=== PATIENT | female | born 1980 | race Caucasian/White ===

== ENCOUNTER 2017-12-28 08:52 | Emergency (ER) | payer OTHER ==
[2017-12-28 08:57] VITALS: BMI 37.5
--- NOTE | 2017-12-28 09:43 | PDOC ---
History of Present Illness - General Chief Complaint: Vaginal Bleeding Stated Complaint: 6WK,BLEEDING History Source: Patient Exam Limitations: No Limitations - History of Present Illness Travel History: No Initial Comments: 12/28/17 09:43 HPI: This 37-year-old female who states that she is with a last menstrual period of November 15 is claiming that she's having some vaginal bleeding since this morning. No recent sexual intercourse. Also had a bout of nausea and vomiting last night 1. She is not having any nausea, vomiting, excessive vaginal bleeding, abdominal pain at this time. Denies fever Chief Compliant: vag bleeding in light of PMH: none FH: Pt has not recently traveled outside the country in the last 30 days. Pt has not been in contact with people who have traveled out of the country, in contact with people who have been ill with fever, n, v, d. 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 MANAGER:[address] LMP: Nov 15 G 5 P 1 a 0 M2 1 ectopic in 2016 in left ovary Past History - Travel Traveled outside of the country in the last 30 days: No Close contact w/someone who was outside of country & ill: No - Past Medical History Allergies/Adverse Reactions: Allergies Allergy/AdvReac Type Severity Reaction Status Date / Time No Known Allergies Allergy Verified 12/28/17 08:56 Home Medications: Ambulatory Orders NK [No Known Home Medication] 12/28/17 Anemia: No Cardiac Disorders: No COPD: No - Surgical History Abdominal Surgery: (etopic ) - Reproductive History Is Patient Now?: Yes (6 weeks) (#): 5 Para: 1 Ectopic : Yes (x1) Spontaneous : 2 - Suicide/Smoking/Psychosocial Hx Smoking History: Never smoked Information on smoking cessation initiated: No Hx Alcohol Use: No Drug/Substance Use Hx: No Substance Use Type: None Abd/GI Specific PMHX - Complaint Specific PMHX Colitis: No Diverticulitis: No Gall Bladder Disease: No GERD: No Hepatitis: No Irritable Bowel Synd (IBS): No Pancreatitis: No GI Ulcer Disease: No Review of Systems - Review of Systems Able to Perform ROS?: Yes Is the patient limited Romanian proficient: No Constitutional: No: Symptoms Reported HEENTM: No: Symptoms Reported Respiratory: No: Symptoms reported Cardiac (ROS): No: Symptoms Reported ABD/GI: Yes: Nausea, Vomiting, Other (vaginal bleeding). No: Abdominal Distended, Constipated, Diarrhea, Abdominal cramping : No: Symptoms Reported Musculoskeletal: No: Symptoms Reported Integumentary: No: Symptoms Reported Neurological: No: Symptoms reported *Physical Exam - Vital Signs Last Vital Signs Temp Pulse Resp BP Pulse Ox 98.3 F 96 H 17 128/65 98 12/28/17 08:54 12/28/17 08:54 12/28/17 08:54 12/28/17 08:54 12/28/17 08:54 - Physical Exam General Appearance: Yes: Appropriately Dressed HEENT: positive: Normal Voice Respiratory/Chest: positive: Lungs Clear Cardiovascular: positive: Regular Rate Female Pelvic Exam: positive: normal external exam, vaginal bleeding Gastrointestinal/Abdominal: positive: Normal Bowel Sounds, Flat, Soft Extremity: positive: Normal Capillary Refill Integumentary: positive: Dry, Warm Neurologic: positive: Fully Oriented, Alert ED Treatment Course - LABORATORY CBC & Chemistry Diagram: 12/28/17 09:50 Medical Decision Making - Medical Decision Making 12/28/17 09:50 This pt was seen and examined at bedside with family present Pt with c/o vaginal bleeding in bleeding Plan -Beta HCG -T&S -Transvaginal u/s -cbc 12/28/17 11:27 Laboratory Tests 12/28/17 12/28/17 12/28/17 09:50 09:50 09:50 WBC 10.5 H Hgb 13.4 Hct 39.0 Plt Count 268 Beta HCG, Quant 82608.9 Blood Type A NEGATIVE Antibody Screen Negative 12/28/17 12:08 us officially read with a single live fetus with HR 150 without obvious distress. Will discharge home and have them return in 3 days or her Primary DENTAL LABORATORY MANAGER for evaluation. If bleeding continues, will need to come in sooner. *DC/Admit/Observation/Transfer Diagnosis at time of Disposition: Vaginal bleeding affecting early - Discharge Dispostion Disposition: HOME Condition at time of disposition: Stable Admit: No - Referrals - Patient Instructions Printed Discharge Instructions: Vaginal Bleeding During Additional Instructions: Discharge instructions 1. Please follow up with your primary physician DENTAL LABORATORY MANAGER within the next few days and explain that you have been seen here in the Emergency Room for vaginal bleeding. 2. If you experience any worsening of symptoms, such as heavy bleeding and clotting with increase pain, please return to the ER 3. Rest, avoid sexual intercourse until follow up with your DENTAL LABORATORY MANAGER 4. Drink plenty of water, rest with your feet up - Post Discharge Activity Forms/Work/School Notes: Back to Work
[2017-12-28 09:54] LABS: HEMOGLOBIN 13.4 GM/dL (10.7-15.3); MCH 30.3 pg (25.7-33.7); MCHC 34.4 g/dl (32.0-36.0); MEAN CELL VOLUME 88.1 fl (80-96); MEAN PLT VOLUME 6.9 fl (7.5-11.1); PLATELET COUNT 268 K/MM3 (134-434); RBC 4.43 M/mm3 (3.60-5.2); RDW 13.7 % (11.6-15.6); WHITE BLOOD COUNT 10.5 K/mm3 (4.0-10.0)
[2017-12-28 09:57] LABS: URINE APPEARANCE CLEAR; URINE BILIRUBIN NEGATIVE (NEGATIVE); URINE BLOOD NEGATIVE (NEGATIVE); URINE COLOR LTYELLOW; URINE GLUCOSE (UA) NEGATIVE (NEGATIVE); URINE KETONE NEGATIVE (NEGATIVE); URINE LEUK ESTERASE NEGATIVE (NEGATIVE); URINE NITRITE NEGATIVE (NEGATIVE); URINE PROTEIN NEGATIVE (NEGATIVE); URINE UROBILINOGEN NEGATIVE mg/dL (0.2-1.0)
[2017-12-28 12:16] VITALS: BP 125/80; PULSE 80; TEMP 98.2
== END 2017-12-28 12:30 | disposition home or self-care (01) ==
LOC: JER 08:52
DX: O26.891 Other specified pregnancy related conditions, first trimester (principal); Z3A.01 Less than 8 weeks gestation of pregnancy; N93.9 Abnormal uterine and vaginal bleeding, unspecified
CPT/HCPCS: 36415; 76817-TC; 81003; 84702; 85027; 86850; 86900; 86901; 99282-25

== ENCOUNTER 2018-01-10 10:17 | Emergency (ER) | payer OTHER ==
[2018-01-10 10:27] VITALS: TEMP 98; BMI 36.8
[2018-01-10] MEDS ORDERED: RHO(D) IMMUNE GLOBULIN 1,500 UNIT DISP.SYRIN IM ONE (11:30)
--- NOTE | 2018-01-10 11:49 | PDOC ---
History of Present Illness - General Chief Complaint: Vaginal Bleeding Stated Complaint: VAGINAL BLEEDING (8 WKS ) Time Seen by Provider: 01/10/18 11:05 History Source: Patient Exam Limitations: No Limitations - History of Present Illness Travel History: No Initial Comments: 01/10/18 11:44 37-year-old female currently 8 weeks presents to the emergency room with evaluation for vaginal bleeding since this morning after having repetitions sneezing. Patient states has no abdominal pain or passage of large clots and is concerned she had vaginal spotting earlier this month at around 6 weeks of . Patient states is followed by Carito Magdaleno at [address] [place] [address] and has had no ultrasound for this . Patient has no urinary complaints, back pain, fever, chills, or vaginal discharge. Timing/Duration: reports: changing over time, intermittent Aggravating Factors: improves with: None Alleviating Factors: improves with: None Past History - Travel Traveled outside of the country in the last 30 days: No - Past Medical History Allergies/Adverse Reactions: Allergies Allergy/AdvReac Type Severity Reaction Status Date / Time No Known Allergies Allergy Verified 01/10/18 10:26 Home Medications: Ambulatory Orders NK [No Known Home Medication] 12/28/17 Anemia: No Cardiac Disorders: No COPD: No - Surgical History Abdominal Surgery: (etopic ) - Reproductive History (#): 5 Para: 1 Ectopic : Yes (x1) Spontaneous : 2 - Suicide/Smoking/Psychosocial Hx Smoking History: Never smoked Information on smoking cessation initiated: No Hx Alcohol Use: No Drug/Substance Use Hx: No Substance Use Type: None Patient Lives Alone: No Lives with/in: spouse/SO Abd/GI Specific PMHX - Complaint Specific PMHX Colitis: No Diverticulitis: No Gall Bladder Disease: No GERD: No Hepatitis: No Irritable Bowel Synd (IBS): No Pancreatitis: No GI Ulcer Disease: No Review of Systems - Review of Systems Able to Perform ROS?: Yes Constitutional: No: Symptoms Reported ABD/GI: No: Symptoms Reported : Yes: Discharge Musculoskeletal: No: Symptoms Reported Integumentary: No: Symptoms Reported Neurological: No: Symptoms reported Hematologic/Lymphatic: No: Symptoms Reported *Physical Exam - Vital Signs Last Vital Signs Temp Pulse Resp BP Pulse Ox 98 F 82 18 122/68 99 01/10/18 10:25 01/10/18 10:25 01/10/18 10:25 01/10/18 10:25 01/10/18 10:25 - Physical Exam General Appearance: Yes: Nourished, Appropriately Dressed. No: Apparent Distress Neck: positive: Normal Thyroid Cardiovascular: positive: Regular Rhythm, Regular Rate. negative: Murmur Female Pelvic Exam: positive: normal external exam, cervical os closed, normal adnexa, vaginal bleeding (scant brown). negative: CMT, adnexal tenderness Gastrointestinal/Abdominal: positive: Normal Bowel Sounds, Soft, Tenderness ( mild left suprapubic). negative: Distended, Guarding, Rebound Musculoskeletal: negative: CVA Tenderness Integumentary: positive: Normal Color, Warm, Moist Neurologic: positive: Motor Strength 5/5 (ambulatory) ED Treatment Course - LABORATORY CBC & Chemistry Diagram: 01/10/18 12:53 - RADIOLOGY Radiology Studies Ordered: Category Date Time Status <14WKS US [US] Stat Ultrasound 01/10/18 11:32 Ordered Medical Decision Making - Medical Decision Making 01/10/18 11:47 Patient here of vaginal bleeding since this morning which has subsided since arrival. Patient on exam with scant brown discharge with mild left suprapubic tenderness. Differential diagnosis: Vaginal bleeding in , miscarriage, UTI, Type and screen ordered since she is A- according to previous ER visit. CBC, urinalysis urine culture beta hCG and ultrasound ordered 01/10/18 14:02 Laboratory Tests 01/10/18 01/10/18 01/10/18 12:10 12:53 12:53 WBC 13.7 H D Hgb 13.5 Hct 40.3 Plt Count 312 MPV 6.8 L Beta HCG, Quant Urine Ketones Negative Ur Leukocyte Esterase Negative Blood Type A NEGATIVE 01/10/18 12:53 WBC Hgb Hct Plt Count MPV Beta HCG, Quant 44525.8 Urine Ketones Ur Leukocyte Esterase Blood Type Patient went to ultrasound and is awaiting rhogam administration 01/10/18 14:36 Ultrasound shows a single live intrauterine gestation corresponding to an estimated mated gestational age of 7 weeks and 6 days. heart rate at 1 52 bpm. Patient has hypoechoic mass in the anterior wall of the uterus most compatible with Leiomyomas patient will be discharged home with recommendations to follow-up with her DOCTOR OF AUDIOLOGY. *DC/Admit/Observation/Transfer Diagnosis at time of Disposition: Vaginal bleeding affecting early , Threatened in early - Discharge Dispostion Disposition: HOME Condition at time of disposition: Good - Referrals Referrals: Karina Velazquez MD [Primary Care Provider] - - Patient Instructions Printed Discharge Instructions: DI for Vaginal Bleeding During Additional Instructions: Ultrasound shows you are 7 weeks 6 days and year heart rate was 1 52 bpm. You also had fibroids noted within the uterus which may attribute to vaginal bleeding - Post Discharge Activity Forms/Work/School Notes: Back to Work
[2018-01-10 12:28] LABS: URINE APPEARANCE CLEAR; URINE BILIRUBIN NEGATIVE (NEGATIVE); URINE BLOOD NEGATIVE (NEGATIVE); URINE COLOR YELLOW; URINE GLUCOSE (UA) NEGATIVE (NEGATIVE); URINE KETONE NEGATIVE (NEGATIVE); URINE LEUK ESTERASE NEGATIVE (NEGATIVE); URINE NITRITE NEGATIVE (NEGATIVE); URINE PROTEIN NEGATIVE (NEGATIVE); URINE UROBILINOGEN NEGATIVE mg/dL (0.2-1.0)
[2018-01-10 12:59] LABS: BASO % 0.3 % (0-2.0); EOS % 0.9 % (0-4.5); HEMATOCRIT 40.3 % (32.4-45.2); HEMOGLOBIN 13.5 GM/dL (10.7-15.3); LYMPH % 14.3 % (8-40); MCH 29.6 pg (25.7-33.7); MCHC 33.4 g/dl (32.0-36.0); MEAN CELL VOLUME 88.6 fl (80-96); MEAN PLT VOLUME 6.8 fl (7.5-11.1); MONO % 4.9 % (3.8-10.2); NEUT % 79.6 % (42.8-82.8); PLATELET COUNT 312 K/MM3 (134-434); RBC 4.55 M/mm3 (3.60-5.2); RDW 13.4 % (11.6-15.6); WHITE BLOOD COUNT 13.7 K/mm3 (4.0-10.0)
--- NOTE | 2018-01-10 13:31 | PDOC ---
*Physical Exam - Vital Signs Last Vital Signs Temp Pulse Resp BP Pulse Ox 98 F 82 18 122/68 99 01/10/18 10:25 01/10/18 10:25 01/10/18 10:25 01/10/18 10:25 01/10/18 10:25 ED Treatment Course - LABORATORY CBC & Chemistry Diagram: 01/10/18 12:53 - ADDITIONAL ORDERS Additional order review: Laboratory Results 01/10/18 12:10 Urine Color Yellow Urine Appearance Clear Urine pH 6.0 Ur Specific [place] 1.024 Urine Protein Negative Urine Glucose (UA) Negative Urine Ketones Negative Urine Blood Negative Urine Nitrite Negative Urine Bilirubin Negative Urine Urobilinogen Negative Ur Leukocyte Esterase Negative 01/10/18 12:53 RBC 4.55 MCV 88.6 MCHC 33.4 RDW 13.4 MPV 6.8 L Neutrophils % 79.6 Lymphocytes % 14.3 Monocytes % 4.9 Eosinophils % 0.9 Basophils % 0.3 Medical Decision Making - Medical Decision Making 01/10/18 13:30 Patient seen and evaluated with the nurse practitioner. I agree with the overall evaluation, assessment, and management with the following summary of visit: 37-year-old female approximately 8 weeks gestation presents with vaginal bleeding. Threatened miscarriage versus ectopic. Labs, urinalysis Rh, hCG Dispo accordingly *DC/Admit/Observation/Transfer Diagnosis at time of Disposition: Vaginal bleeding affecting early - Referrals Referrals: Karina Velazquez MD [Primary Care Provider] - - Patient Instructions - Post Discharge Activity
[2018-01-10 15:49] VITALS: BP 125/70; PULSE 84
== END 2018-01-10 15:35 | disposition home or self-care (01) ==
LOC: JER 10:17
PROC: 3E0234Z Introduction of Serum, Toxoid and Vaccine into Muscle, Percutaneous Approach (ICD-10-PCS; principal; 2018-01-10)
DX: O26.891 Other specified pregnancy related conditions, first trimester (principal); O20.0 Threatened abortion; O36.0910 Maternal care for other rhesus isoimmunization, first trimester, not applicable or unspecified; Z3A.01 Less than 8 weeks gestation of pregnancy
CPT/HCPCS: 36415; 76801-TC; 81003; 84702; 85025; 86850; 86900; 86901; 86999; 87086; 99283-25; J1561

== ENCOUNTER 2018-02-04 20:01 | Emergency (ER) | payer OTHER ==
[2018-02-04 20:05] VITALS: BMI 36.6
--- NOTE | 2018-02-04 20:23 | PDOC ---
History of Present Illness - General Chief Complaint: Vaginal Bleeding Stated Complaint: VAGINAL BLEEDING (12 WKS ) Time Seen by Provider: 02/04/18 20:17 History Source: Patient Exam Limitations: No Limitations - History of Present Illness Travel History: No Initial Comments: 02/04/18 20:58 Best Contact: Pmhx: N/A Pshx:N/A Allergies: NKDA LMP: 11/14/2017 37 year old female presents to the emergency department with her complaining of 5/10 dull nonradiating intermittent pelvic pain with mild vaginal bleed but denies fever, chills, nausea/vomiting, chest pain, shortness of breath, back pains, abdominal pains, urinary symptoms: Frequency/urgency/ hesitancy, hematuria. On 01/10/2018 patient had a transvaginal ultrasound that showed a live single intrauterine Past History - Past Medical History Allergies/Adverse Reactions: Allergies Allergy/AdvReac Type Severity Reaction Status Date / Time shellfish derived Allergy Verified 02/04/18 20:05 Home Medications: Ambulatory Orders NK [No Known Home Medication] 12/28/17 Anemia: No Cardiac Disorders: No COPD: No - Surgical History Abdominal Surgery: (etopic ) - Reproductive History (#): 5 Para: 1 Ectopic : Yes (x1) Spontaneous : 2 - Suicide/Smoking/Psychosocial Hx Smoking History: Never smoked Have you smoked in the past 12 months: No Information on smoking cessation initiated: No Hx Alcohol Use: No Drug/Substance Use Hx: No Substance Use Type: None Abd/GI Specific PMHX - Complaint Specific PMHX Colitis: No Diverticulitis: No Gall Bladder Disease: No GERD: No Hepatitis: No Irritable Bowel Synd (IBS): No Pancreatitis: No GI Ulcer Disease: No *Physical Exam - Vital Signs Last Vital Signs Temp Pulse Resp BP Pulse Ox 98.0 F 88 16 134/79 99 02/04/18 20:03 02/04/18 20:03 02/04/18 20:03 02/04/18 20:03 02/04/18 20:03 ED Treatment Course - LABORATORY CBC & Chemistry Diagram: 02/04/18 20:29 02/04/18 20:29 - RADIOLOGY Radiograph Interpretation: 02/04/18 23:46 Transvaginal ultrasound: demise Progress Note - Progress Note Progress Note: 0027hrs: Spoke to Dr. Pierson/miller kiln dried salt in house, states patient had rolled a.m. on January 10 which should cover her visit and was diagnosed with demise today *DC/Admit/Observation/Transfer Diagnosis at time of Disposition: demise - Discharge Dispostion Disposition: HOME Condition at time of disposition: Stable Admit: No - Referrals Referrals: Karina Velazquez MD [Primary Care Provider] - Rosana Marrero MD [Staff Physician] - - Patient Instructions Additional Instructions: Be sure to follow-up with your miller kiln dried salt within 48 hours Return back to the emergency department for vaginal bleed, increased pain or concerning symptoms - Post Discharge Activity
[2018-02-04 20:51] LABS: BASO % 0.2 % (0-2.0); EOS % 1.9 % (0-4.5); HEMATOCRIT 37.1 % (32.4-45.2); LYMPH % 24.6 % (8-40); MCH 30.7 pg (25.7-33.7); MEAN CELL VOLUME 87.6 fl (80-96); MEAN PLT VOLUME 6.7 fl (7.5-11.1); MONO % 5.7 % (3.8-10.2); NEUT % 67.6 % (42.8-82.8); PLATELET COUNT 293 K/MM3 (134-434); RBC 4.23 M/mm3 (3.60-5.2); RDW 12.7 % (11.6-15.6); WHITE BLOOD COUNT 10.9 K/mm3 (4.0-10.0)
[2018-02-04 21:07] LABS: URINE APPEARANCE SLCLOUDY; URINE BILIRUBIN NEGATIVE (<2.0 mg/dL); URINE BLOOD 2+ (NEGATIVE); URINE COLOR LTYELLOW; URINE GLUCOSE (UA) NEGATIVE (NEGATIVE); URINE KETONE NEGATIVE (NEGATIVE); URINE LEUK ESTERASE NEGATIVE (NEGATIVE); URINE NITRITE NEGATIVE (NEGATIVE); URINE PROTEIN NEGATIVE (NEGATIVE); URINE UROBILINOGEN NEGATIVE mg/dL (0.2-1.0)
--- NOTE | 2018-02-04 21:07 | PDOC ---
*Physical Exam - Vital Signs Last Vital Signs Temp Pulse Resp BP Pulse Ox 98.0 F 88 16 134/79 99 02/04/18 20:03 02/04/18 20:03 02/04/18 20:03 02/04/18 20:03 02/04/18 20:03 ED Treatment Course - LABORATORY CBC & Chemistry Diagram: 02/04/18 20:29 02/04/18 20:29 - ADDITIONAL ORDERS Additional order review: 02/04/18 20:29 RBC 4.23 MCV 87.6 MCHC 35.0 RDW 12.7 MPV 6.7 L Neutrophils % 67.6 Lymphocytes % 24.6 D Monocytes % 5.7 Eosinophils % 1.9 D Basophils % 0.2 Medical Decision Making - Medical Decision Making 02/04/18 21:07 Pt seen by Midlevel Provider under my direct supervision Pt interviewed and examined Ancillary studies reviewed I agree with plan as outlined by Midlevel Provider *DC/Admit/Observation/Transfer Diagnosis at time of Disposition: demise - Discharge Dispostion Disposition: HOME Condition at time of disposition: Stable - Referrals Referrals: Kraina Velazquez MD [Primary Care Provider] - Rosana Marrero MD [Staff Physician] - - Patient Instructions Additional Instructions: Be sure to follow-up with your acid patroller within 48 hours Return back to the emergency department for vaginal bleed, increased pain or concerning symptoms - Post Discharge Activity
[2018-02-04 21:10] LABS: EPI CELLS RARE /HPF (FEW); URINE BACTERIA RARE /hpf (NONE SEEN); URINE MUCUS RARE
[2018-02-04 21:13] LABS: ALBUMIN 3.1 g/dl (3.4-5.0); ANION GAP 4 (8-16); BLOOD UREA NITROGEN 15 mg/dL (7-18); CALCIUM 8.5 mg/dL (8.5-10.1); CHLORIDE 107 mmol/L (98-107); CO2 26 mmol/L (21-32); CREATININE 1.1 mg/dL (0.55-1.02); GLUCOSE,RANDOM 104 mg/dL (74-106); POTASSIUM 3.9 mmol/L (3.5-5.1); SGOT/AST 10 U/L (15-37); SGPT/ALT 22 U/L (12-78); SODIUM 137 mmol/L (136-145)
[2018-02-04 21:14] LABS: ALK PHOS 60 U/L (45-117); TOT PROT 6.8 g/dl (6.4-8.2)
[2018-02-04 21:17] LABS: BILIRUBIN,TOTAL < 0.1 mg/dL (0.2-1.0)
[2018-02-04 23:04] VITALS: BP 128/75; PULSE 82; TEMP 98.1
== END 2018-02-05 00:48 | disposition home or self-care (01) ==
LOC: JER 20:01
PROC: 3E033NZ Introduction of Analgesics, Hypnotics, Sedatives into Peripheral Vein, Percutaneous Approach (ICD-10-PCS; principal; 2018-02-04)
PROC: 3E0234Z Introduction of Serum, Toxoid and Vaccine into Muscle, Percutaneous Approach (ICD-10-PCS; 2018-02-04)
DX: O02.1 Missed abortion (principal); Z3A.09 9 weeks gestation of pregnancy
CPT/HCPCS: 36415; 76817-TC; 80053; 81003; 81015; 84702; 85025; 86850; 86870; 86900; 86901; 86902; 86999; 96372; 96374; 99282-25

== ENCOUNTER 2018-02-05 12:23 | Emergency (ER) | payer OTHER ==
[2018-02-05 12:36] VITALS: TEMP 97.8; BMI 36.8
--- NOTE | 2018-02-05 12:47 | PDOC ---
History of Present Illness - History of Present Illness Initial Comments: 02/05/18 12:58 Patient is a 37F, with PMHx of fibroids, 2 miscarriages and 1 ectopic, who presents to the ED complaining of abdominal pain and vaginal bleeding s/p demise earlier today. Patient reports 3 weeks of vaginal bleeding and reports that she has been bleeding intermittently throughout her . She is now bleeding heavily and has gone through 4 pads since this morning. She reports passing tissue and brought it with her. She saw her primary on Tuesday and reports that her bleeding and abdominal cramping worsened on Tuesday. She was given Rhogam on 01/10. She denies, lightheadedness, dizziness, chest pain, or shortness of breath. <Garima Bond - Last Filed: 02/05/18 13:53> <Chapis Navarrete - Last Filed: 02/05/18 16:13> - General Chief Complaint: Vaginal Bleeding Stated Complaint: ABD PAIN/VAG BLEEDING Time Seen by Provider: 02/05/18 12:32 Past History <Garima Bond - Last Filed: 02/05/18 13:53> - Past Medical History Anemia: No Cardiac Disorders: No COPD: No - Surgical History Abdominal Surgery: (etopic ) - Reproductive History (#): 5 Para: 1 Ectopic : Yes (x1) Spontaneous : 2 - Suicide/Smoking/Psychosocial Hx Smoking History: Never smoked Have you smoked in the past 12 months: No Information on smoking cessation initiated: No Hx Alcohol Use: No Drug/Substance Use Hx: No Substance Use Type: None <Chapis Navarrete - Last Filed: 02/05/18 16:13> - Past Medical History Allergies/Adverse Reactions: Allergies Allergy/AdvReac Type Severity Reaction Status Date / Time shellfish derived Allergy Verified 02/05/18 12:36 Home Medications: Ambulatory Orders NK [No Known Home Medication] 12/28/17 Review of Systems - Review of Systems Comments:: 02/05/18 12:58 GENERAL/CONSTITUTIONAL: No fever or chills. No weakness. HEAD, EYES, EARS, NOSE AND THROAT: No change in vision. No ear pain or discharge. No sore throat. GASTROINTESTINAL: +abdominal cramping. No nausea, vomiting, diarrhea or constipation. GENITOURINARY: No dysuria, frequency, or change in urination. GYNECOLOGICAL: +vaginal bleeding, clots of tissue. CARDIOVASCULAR: No chest pain or shortness of breath. RESPIRATORY: No cough, wheezing, or hemoptysis. MUSCULOSKELETAL: No joint or muscle swelling or pain. No neck or back pain. SKIN: No rash NEUROLOGIC: No headache, vertigo, loss of consciousness, or change in strength/ sensation. ENDOCRINE: No increased thirst. No abnormal weight change. HEMATOLOGIC/LYMPHATIC: No anemia, easy bleeding, or history of blood clots. ALLERGIC/IMMUNOLOGIC: No hives or skin allergy. <Garima Bond - Josh Filed: 02/05/18 13:53> *Physical Exam - Vital Signs Last Vital Signs Temp Pulse Resp BP Pulse Ox 97.8 F 82 18 123/68 100 02/05/18 12:30 02/05/18 12:30 02/05/18 12:30 02/05/18 12:30 02/05/18 12:30 - Physical Exam Comments: 02/05/18 13:00 Constitutional: Awake, alert, oriented. No acute distress. Head: Normocephalic. Atraumatic Eyes: PERRL. EOMI. Conjunctivae are not pale. ENT: Mucous membranes are moist and intact. Posterior pharynx without exudates or erythema. Uvula midline. Neck: Supple. Full ROM. No lymphadenopathy. Cardiovascular: Regular rate. Regular rhythm. S1, S2 regular. Distal pulses are 2+ and symmetric. Pulmonary/Chest: No evidence of respiratory distress. Clear to auscultation bilaterally No wheezing, rales or rhonchi. Abdominal: Soft and non-distended. Mild tenderness across lower pelvis diffusely. No rebound, guarding or rigidity. No organomegaly. No palpable masses. Good bowel sounds. 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 Musculoskeletal: No edema. No cyanosis. No clubbing. Full range of motion in all extremities. Nocalf tenderness. Radial/pedal pulses are intact and 2+ bilaterally Skin: Skin is warm and dry. No petechiae. No purpura. Neurological: Alert and oriented to person, place, and time. Cranial nerves II -XII are grossly intact. Normal speech. Strength is grossly symmetric. No sensory deficits. Psychiatric: Good eye contact. Normal interaction, affect and behavior. <Garima Bond - Last Filed: 02/05/18 13:53> - Vital Signs Last Vital Signs Temp Pulse Resp BP Pulse Ox 97.8 F 82 18 123/68 100 02/05/18 12:30 02/05/18 12:30 02/05/18 12:30 02/05/18 12:30 02/05/18 12:30 <Chapis Navarrete - Last Filed: 02/05/18 16:13> ED Treatment Course - LABORATORY CBC & Chemistry Diagram: 02/05/18 13:00 02/05/18 13:00 <Garima Bond - Last Filed: 02/05/18 13:53> - LABORATORY CBC & Chemistry Diagram: 02/05/18 13:00 02/05/18 14:01 <Chapis Navarrete - Last Filed: 02/05/18 16:13> Medical Decision Making - Medical Decision Making 02/05/18 13:11 a/p: 37yo with active bleeding - demise yesterday on ultrasound. 9 weeks , active bleeding today. passed tissue at home - will send down for cytology. pt with active bleeding through a double pad and has bled through 4 pads today. cramping in her lower abd -will obtain labs -received Rhogam on visit on 01/10 for vaginal bleeding in this preg -hemoglobin was 13 yesterday -follows with Carito Magdaleno (saw her tuesday) for bleeding -hx of fibroids and hx of ectopic preg -will monitor and reassess 02/05/18 13:14 pt still passing large clots actively bleeding into a bedside commode case discussed with Dr. Marrero who will come to eval the patient. 02/05/18 13:44 pt states still feeling heavy bleeding 02/05/18 14:42 dr. Marrero at the bedside - at this time h/h stable will hold off on d/c at this time just expectant management. 02/05/18 16:03 bleeding has slowed down. no active bleeding at this time h/h stable will follow up with Dr. Marrero as an outpt this week. discussed with the patient and her signif other all reasons to return to the ED and need for follow up. Discussed with the patient expectant management discussed ultrasound findings. discussed reasons to return for worsening bleeding. stable for d/c to home. answered all questions. discussed repeat beta hcg testing. <Chapis Navarrete - Last Filed: 02/05/18 16:13> *DC/Admit/Observation/Transfer - Attestations Scribe Attestion: 02/05/18 13:01 Documentation prepared by Garima Bond, acting as manager of medical for Chapis Navarrete DO. <Garima Bond - Last Filed: 02/05/18 13:53> - Discharge Dispostion Admit: No - Attestations Physician Attestion: 02/05/18 16:12 I, Dr. Chapis Navarrete, DO, attest that this document has been prepared under my direction and personally reviewed by me in its entirety. I further attest, that it accurately reflects all work, treatment, procedures and medical decision -making performed by me. <Chapis Navarrete - Last Filed: 02/05/18 16:13> Diagnosis at time of Disposition: Complete - Discharge Dispostion Disposition: HOME Condition at time of disposition: Stable - Referrals Referrals: Karina Velazquez MD [Primary Care Provider] - Rosana Marrero MD [Staff Physician] - - Patient Instructions Printed Discharge Instructions: DI for Miscarriage Additional Instructions: Please return to the ED with any further concerns. Please return to the ED if you are bleeding more than 2 pads for more than 2 hours. Please follow up with Dr. Marrero. Please repeat the beta hcg in 1 week. Please follow up with your PMD. - Post Discharge Activity Forms/Work/School Notes: Back to Work
[2018-02-05] MEDS ORDERED: ACETAMINOPHEN 1000 MG/100 ML VIAL (NON FORMULARY) IVPB ONE (12:50)
[2018-02-05] MEDS ORDERED: SODIUM CHLORIDE 0.9% 1000 ML INFUS.BAG IV ONE (12:50)
[2018-02-05] MEDS ORDERED: ACETAMINOPHEN INJECTION 100 ML IVPB ONE (13:36)
[2018-02-05 13:38] LABS: BASO % 0.4 % (0-2.0); EOS % 1.4 % (0-4.5); HEMOGLOBIN 13.6 GM/dL (10.7-15.3); LYMPH % 17.6 % (8-40); MCH 29.2 pg (25.7-33.7); MCHC 33.1 g/dl (32.0-36.0); MEAN CELL VOLUME 88.3 fl (80-96); MEAN PLT VOLUME 6.8 fl (7.5-11.1); MONO % 5.1 % (3.8-10.2); NEUT % 75.5 % (42.8-82.8); PLATELET COUNT 312 K/MM3 (134-434); RBC 4.64 M/mm3 (3.60-5.2); WHITE BLOOD COUNT 11.8 K/mm3 (4.0-10.0)
[2018-02-05 13:55] LABS: PROTHROMBIN TIME (PATIENT) 11.3 SEC (9.98-11.88)
[2018-02-05 13:58] LABS: ACTIVATED PTT 29.8 SECONDS (26.9-34.4)
[2018-02-05 14:43] LABS: ALBUMIN 2.9 g/dl (3.4-5.0); ANION GAP 5 (8-16); BILIRUBIN,TOTAL 0.1 mg/dL (0.2-1.0); BLOOD UREA NITROGEN 10 mg/dL (7-18); CALCIUM 7.7 mg/dL (8.5-10.1); CHLORIDE 108 mmol/L (98-107); CO2 25 mmol/L (21-32); CREATININE 0.4 mg/dL (0.55-1.02); GLUCOSE,RANDOM 84 mg/dL (74-106); SGOT/AST 13 U/L (15-37); SGPT/ALT 19 U/L (12-78); SODIUM 138 mmol/L (136-145); TOT PROT 6.2 g/dl (6.4-8.2)
--- NOTE | 2018-02-05 14:50 | CON.OBG ---
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 She was diagnosed with Missed yesterday and this morning started to bleed heavy. She admits to have passed fetus at home. Patient seen and evaluated; she was stable. She denies any dizziness. - History Source History Provided By: Patient Limitations to Obtaining History: No Limitations - Past Medical History ...LMP: 11/15/17 ...: Yes - Past Surgical History Additional Surgical History: Surgery for ectopic - Alcohol/Substance Use Hx Alcohol Use: No History of Substance Use: reports: None - Smoking History Smoking history: Never smoked Have you smoked in the past 12 months: No - Social History Usual Living Arrangement: With Significant Other History of Recent Travel: No Home Medications - Allergies Allergies/Adverse Reactions: Allergies Allergy/AdvReac Type Severity Reaction Status Date / Time shellfish derived Allergy Verified 02/05/18 12:36 - Home Medications Home Medications: Ambulatory Orders NK [No Known Home Medication] 12/28/17 Family Disease History - Family Disease History Family History: Unremarkable Review of Systems - Review of Systems Constitutional: denies: Malaise, Weakness Eyes: denies: Blurred Vision Neck: reports: No Symptoms Cardiovascular: denies: Palpitations, Shortness of Breath Respiratory: denies: SOB Genitourinary: reports: Vaginal Bleeding Breasts: reports: No Symptoms Reported Musculoskeletal: reports: No Symptoms Neurological: reports: No Symptoms Psychiatric: reports: No Symptoms Pain Intensity: 1 Physical Exam-FRAMING SPECIALIST Vital Signs: Vital Signs Temperature 97.8 F 02/05/18 12:30 Pulse Rate 82 02/05/18 12:30 Respiratory Rate 18 02/05/18 12:30 Blood Pressure 123/68 02/05/18 12:30 O2 Sat by Pulse Oximetry (%) 100 02/05/18 12:30 Constitutional: Yes: Well Nourished Eyes: Yes: Conjunctiva Clear HENT: Yes: Atraumatic Neck: Yes: Supple, Trachea Midline Cardiovascular: Yes: Regular Rate and Rhythm Respiratory: Yes: Regular Gastrointestinal: Yes: Normal Bowel Sounds Pelvis: Yes: Other (Bloody discharge) External Genitalia: Yes: Normal Vaginal Exam: Yes: Discharge (Bloody) Cervix: Yes: Other (Os closed) Uterus: Yes: Normal Musculoskeletal: Yes: WNL Extremities: Yes: WNL Neurological: Yes: Alert, Oriented ...Motor Strength: WNL Psychiatric: Yes: Alert, Oriented Labs: CBC, BMP 02/05/18 13:00 Assessment/Plan Missed Hemorrhage Complete Cancel suction D&C Continue observation F/U with OB /FRAMING SPECIALIST as out patient
[2018-02-05 14:58] LABS: ALK PHOS 50 U/L (45-117)
[2018-02-05 16:42] VITALS: BP 120/69; PULSE 84
--- NOTE | 2018-02-07 15:35 | PATH ---
Surgical Pathology Report Patient Name: MARIANA IBRAHIM Med. Rec. #: [id number] /Age/Gender: 1980 (Age: 37) / F Account: [id number] Location: EMERGENCY ROOM Taken: 02/05/2018 Received: 02/06/2018 Reported: 02/07/2018 Physicians: Chapis Navarrete DO Specimen(s) Received FETUS TISSUE Clinical History , 9 weeks passed tissue Final Diagnosis UTERINE CONTENTS, EVACUATION: CHORIONIC VILLI, ALONG WITH IMMATURE FETUS SHOWING AUTOLYTIC CHANGES, CONSISTENT WITH PRODUCTS OF CONCEPTION. Electronically Signed August Claire M.D. Gross Description Received fresh, labeled with the patient's name and indicated on the requisition to be tissue, is a 7.5 x 3.5 x 1.5 cm intact gestational sac. Sectioning reveals an intact fetus measuring 2.6 cm from crown to rump. No discrete abnormalities are noted. Educational Psychology Teacher sections are submitted in 2 cassettes as follows: 1-villous tissue; 2-fetus. /02/06/2018 [facility]/02/06/2018
== END 2018-02-05 16:42 | disposition home or self-care (01) ==
LOC: JER 12:23
PROC: 3E033NZ Introduction of Analgesics, Hypnotics, Sedatives into Peripheral Vein, Percutaneous Approach (ICD-10-PCS; principal; 2018-02-05)
DX: O03.9 Complete or unspecified spontaneous abortion without complication (principal); Z3A.01 Less than 8 weeks gestation of pregnancy
CPT/HCPCS: 36415; 76817-TC; 80053; 84702; 85025; 85610; 85730; 86850; 86870; 86900; 86901; 86902; 88305-TC; 96374; 99284-25; J0131; J7030

== ENCOUNTER 2018-03-19 00:08 | Emergency (ER) | payer OTHER ==
[2018-03-19] MEDS ORDERED: diphenhydrAMINE HCL 25 MG CAPSULE (FP) PO ONE ×2 (00:50→00:58)
[2018-03-19] MEDS ORDERED: predniSONE 20 MG TABLET (UD) PO ONE (00:50)
[2018-03-19] MEDS ORDERED: RANITIDINE HCL 150 MG TABLET (FP) PO ONE (00:50)
[2018-03-19] MEDS ORDERED: IBUPROFEN 600 MG TABLET (FP) PO ONE ×2 (00:50→00:58)
[2018-03-19 00:53] VITALS: BP 144/88; PULSE 120; TEMP 98.2; BMI 36.6
[2018-03-19] MEDS ORDERED: predniSONE 20 MG TABLET (UD) ONE (00:57)
[2018-03-19] MEDS ORDERED: RANITIDINE HCL 150 MG TABLET (FP) ONE (00:58)
--- NOTE | 2018-03-19 01:04 | PDOC ---
History of Present Illness - General History Source: Patient Exam Limitations: No Limitations - History of Present Illness Initial Comments: 03/19/18 01:04 The patient is a 37 year old female, with no significant past medical history, who presents to the emergency department with, pain to the bilateral arms and shoulders, itchiness of the hands, with associated erythema and edema. 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 Her symptoms onset after leaving the event. She reports that to have been wearing latex gloves, however, her arms and shoulders were exposed. She reports icing her arms and taking Tylenol with codeine 3 hours ago, with minimal relief. She denies recent fevers, chills, headache or dizziness. She denies recent nausea, vomit, diarrhea or constipation. She denies recent dysuria, frequency, urgency or hematuria. She denies recent chest pain or shortness of breath. Allergies: Shellfish. Past surgical history: None reported. Social history: Nonsmoker. Denies EtOH use and recreational drug use. <Alida Ruiz - Last Filed: 03/19/18 01:16> - General History Source: Patient Exam Limitations: No Limitations <Jorge Luis Gomez - Last Filed: 03/19/18 01:43> - General Chief Complaint: Allergic Reaction Stated Complaint: L&R HAND PAIN Time Seen by Provider: 03/19/18 00:37 Past History <Alida Ruiz - Last Filed: 03/19/18 01:16> - Past Medical History Anemia: No Cardiac Disorders: No COPD: No - Surgical History Abdominal Surgery: (etopic ) - Reproductive History (#): 5 Para: 1 Cervical CA: No Dysfunctional Uterine Bleeding: No Ectopic : Yes (x1) Endometrial CA: No Polycystic Ovaries: No Therapeutic (s) & number: Yes (etopic) Tubal Ligation: No Spontaneous : 2 - Suicide/Smoking/Psychosocial Hx Smoking History: Never smoked Have you smoked in the past 12 months: No Hx Alcohol Use: No Drug/Substance Use Hx: No Substance Use Type: None <Jorge Luis Gomez - Last Filed: 03/19/18 01:43> - Past Medical History Allergies/Adverse Reactions: Allergies Allergy/AdvReac Type Severity Reaction Status Date / Time shellfish derived Allergy Verified 03/19/18 00:37 Home Medications: Ambulatory Orders Diphenhydramine HCl [Benadryl -] 25 mg PO Q6H PRN #28 capsule 03/19/18 Ibuprofen [Motrin -] 600 mg PO QID PRN #28 tablet 03/19/18 Prednisone [Deltasone] 60 mg PO DAILY #12 tablet 03/19/18 Ranitidine HCl [Zantac] 150 mg PO BID PRN #20 tablet 03/19/18 Review of Systems - Review of Systems Able to Perform ROS?: Yes Comments:: 03/19/18 01:04 GENERAL/CONSTITUTIONAL: No fever or chills. No weakness. HEAD, EYES, EARS, NOSE AND THROAT: No change in vision. No ear pain or discharge. No sore throat. CARDIOVASCULAR: No chest pain or shortness of breath. RESPIRATORY: No cough, wheezing, or hemoptysis. GASTROINTESTINAL: No nausea, vomiting, diarrhea or constipation. GENITOURINARY: No dysuria, frequency, or change in urination. MUSCULOSKELETAL: No joint swelling or pain. No neck or back pain. +EXTREMITIES: Pain to the bilateral arms. NEUROLOGIC: No headache, vertigo, loss of consciousness, or change in strength/ sensation. ENDOCRINE: No increased thirst. No abnormal weight change. HEMATOLOGIC/LYMPHATIC: No anemia, easy bleeding, or history of blood clots. ALLERGIC/IMMUNOLOGIC: Redness, itchiness, and swelling to the bilateral hands. All Other Systems: Reviewed and Negative <Ailda Ruiz - Last Filed: 03/19/18 01:16> *Physical Exam - Vital Signs Last Vital Signs Temp Pulse Resp BP Pulse Ox 98.2 F 120 H 22 144/88 97 03/19/18 00:37 03/19/18 00:37 03/19/18 00:37 03/19/18 00:37 03/19/18 00:37 - Physical Exam Comments: 03/19/18 01:16 GENERAL: Awake, alert, and fully oriented, in no acute distress HEAD: No signs of trauma EYES: PERRLA, EOMI, sclera anicteric, conjunctiva clear ENT: Auricles normal inspection, hearing grossly normal, nares patent, oropharynx clear without exudates. Moist mucosa NECK: Normal ROM, supple, no lymphadenopathy, JVD, or masses LUNGS: Breath sounds equal, clear to auscultation bilaterally. No wheezes, and no crackles HEART: Regular rate and rhythm, normal S1 and S2, no murmurs, rubs or gallops ABDOMEN: Soft, nontender, normoactive bowel sounds. No guarding, no rebound. No masses EXTREMITIES: Mild edema and erythema of the posterior bilateral forearm. Compartment soft. Normal range of motion. No clubbing or cyanosis. No cords or tenderness NEUROLOGICAL: Cranial nerves II through XII grossly intact. Normal speech, normal gait <Alida Ruiz - Last Filed: 03/19/18 01:16> - Vital Signs Last Vital Signs Temp Pulse Resp BP Pulse Ox 98.2 F 120 H 22 144/88 97 03/19/18 00:37 03/19/18 00:37 03/19/18 00:37 03/19/18 00:37 03/19/18 00:37 <Jorge Luis Gomez - Last Filed: 03/19/18 01:43> ED Treatment Course - Medications Given in the ED: ED Medications Discontinued Medications Generic Name Dose Route Start Last Admin Trade Name Freq PRN Reason Stop Dose Admin Diphenhydramine HCl 50 mg 03/19/18 00:50 03/19/18 01:01 Benadryl - PO 03/19/18 00:51 50 mg ONCE ONE Administration Ibuprofen 600 mg 03/19/18 00:50 03/19/18 01:01 Motrin - PO 03/19/18 00:51 600 mg ONCE ONE Administration Prednisone 60 mg 03/19/18 00:50 03/19/18 01:01 Deltasone - PO 03/19/18 00:51 60 mg ONCE ONE Administration Ranitidine HCl 150 mg 03/19/18 00:50 03/19/18 01:02 Zantac - PO 03/19/18 00:51 150 mg ONCE ONE Administration <Alida Ruiz - Last Filed: 03/19/18 01:16> Medical Decision Making - Medical Decision Making 03/19/18 00:54 A portion of this note was documented by scribe services under my direction. I have reviewed the details of the note, within reason, and agree with the documentation with the following case summary and management plan written by me. Patient treated in the ED. Nursing notes are reviewed and incorporated into the medical decision-making. Vital signs reviewed. Peripheral IV access obtained by the nurse, laboratory studies are drawn and sent, reviewed and interpreted by myself. Vital Signs Temp Pulse Resp BP Pulse Ox 98.2 F 120 H 22 144/88 97 03/19/18 00:37 03/19/18 00:37 03/19/18 00:37 03/19/18 00:37 03/19/18 00:37 37 year old female with no past medical history presents with itching and pain in the bilateral forearms. 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 The patient was wearing a t-shirt. States that she started to develop severe bilateral forearm itching and pain. States that icing makes it feels better. States extend up to the upper arms. Denies chest pain, SOB, nausea, vomiting. I suspect that the patient is likely have a local allergic reaction to whatever she was grilling. Will give allergic reaction medications and reassess. If symptoms improve, will give a prescription of benadryl, prednisone, and epi-pen with referral to an set decorator. 03/19/18 01:39 Pt reports feeling much better. It is also possible that her being outdoors with the pollen may have been the cause as well. Either way, patient will need follow up with an set decorator. Pt is cleared for discharge. <Jorge Luis Gomez - Last Filed: 03/19/18 01:43> *DC/Admit/Observation/Transfer - Attestations Scribe Attestion: 03/19/18 01:04 Documentation prepared by Alida Ruiz, acting as medical laboratory scientist for Jorge Luis Gomez MD. <Alida Ruiz - Last Filed: 03/19/18 01:16> - Discharge Dispostion Decision to Admit order: No <Jorge Luis Gomez - Last Filed: 03/19/18 01:43> Diagnosis at time of Disposition: Allergic reaction Qualifiers: Encounter type: initial encounter Qualified Code(s): T78.40XA - Allergy, unspecified, initial encounter - Discharge Dispostion Disposition: HOME Condition at time of disposition: Improved - Prescriptions Prescriptions: Diphenhydramine HCl [Benadryl -] 25 mg PO Q6H PRN #28 capsule PRN Reason: Itching Ibuprofen [Motrin -] 600 mg PO QID PRN #28 tablet PRN Reason: Pain Prednisone [Deltasone] 60 mg PO DAILY #12 tablet Ranitidine HCl [Zantac] 150 mg PO BID PRN #20 tablet PRN Reason: Allergic Reaction / Abdominal - Referrals Referrals: Jay Menendez MD [Staff Physician] - - Patient Instructions Printed Discharge Instructions: DI for General Allergic Reactions Additional Instructions: Please take the medications as prescribed including the benadryl, prednisone. It is important that you follow up with an set decorator. Call to schedule an appointment. If you have difficulty breathing from an allergic reaction, please use the epi- pen and return to the ER. Print Language: BULGARIAN
== END 2018-03-19 02:08 | disposition home or self-care (01) ==
LOC: JER 00:08
DX: T78.40XA Allergy, unspecified, initial encounter (principal); Y93.G2 Activity, grilling and smoking food
CPT/HCPCS: 99281-25

== ENCOUNTER → 2018-09-06 | Day surgery (SDC) | payer OTHER ==
--- NOTE | 2018-09-07 15:52 | PATH ---
Cytology Non-Gynecological Report Patient Name: MARIANA IBRAHIM [facility]. Rec. #: [id number] /Age/Gender: 1980 (Age: 38) / F Account: [id number] Location: RADIOLOGY INTER Taken: 09/06/2018 Received: 09/06/2018 Reported: 09/07/2018 Physicians: Clair Escobar M.D. Specimen(s) Received THYROID FNA RIGHT SIDE Clinical History Right thyroid nodule, 2.96 x 2.21 x 2.50 cm Final Diagnosis THYROID, RIGHT, FINE NEEDLE ASPIRATION: SATISFACTORY FOR EVALUATION. BETHESDA CLASS II: BENIGN. CYTOLOGIC FINDINGS ARE CONSISTENT WITH A BENIGN FOLLICULAR NODULE WITH POST-HEMORRHAGIC CHANGE. FOLLICULAR CELLS WITH FOCAL REACTIVE CHANGES IN A BACKGROUND OF ABUNDANT COLLOID AND HEMOSIDERIN-LADEN MACROPHAGES. Electronically Signed Ashley Montgomery M.D. Gross Description Received are eight direct smears, four of which are air-dried and Diff-Quik stained, and four of which are alcohol fixed and Pap stained. Also received is 20 ml of bloody formalin from which one cellblock is prepared.
== END | disposition home or self-care (01) ==
LOC: JRADIR 07:20
PROVIDERS: ATTEND Internal Medicine Endocrinology, Diabetes & Metabolism
PROC: 0G9H3ZX Drainage of Right Thyroid Gland Lobe, Percutaneous Approach, Diagnostic (ICD-10-PCS; principal; 2018-09-06)
DX: E04.1 Nontoxic single thyroid nodule (principal)
CPT/HCPCS: 76942; 88173; 88305-TC

== ENCOUNTER 2018-09-29 09:39 | Emergency (ER) | payer OTHER ==
[2018-09-29 09:47] VITALS: TEMP 99.4; BMI 46.2
[2018-09-29] MEDS ORDERED: METOCLOPRAMIDE HCL INJECTION 10 MG/2 ML VIAL IVPUSH ONE (09:57)
[2018-09-29] MEDS ORDERED: SODIUM CHLORIDE 1,000 ML IV ONE (09:57)
--- NOTE | 2018-09-29 10:00 | PDOC ---
History of Present Illness - General Chief Complaint: Pain Stated Complaint: ABD PAIN Time Seen by Provider: 09/29/18 09:50 History Source: Patient Exam Limitations: No Limitations - History of Present Illness Travel History: No Initial Comments: 09/29/18 09:58 38 yr female history of gastric ulcer presents with c/o sudden onset NVD since 2am. Pt denies fever , no sick contacts at home. Pt has generalized abd pain with cramping. 09/29/18 10:00 Timing/Duration: reports: constant Quality: reports: moderate, aching, cramping, throbbing Abdominal Pain Onset Location: reports: generalized abdomen Past History - Past Medical History Allergies/Adverse Reactions: Allergies Allergy/AdvReac Type Severity Reaction Status Date / Time shellfish derived Allergy Verified 03/19/18 00:37 Home Medications: Ambulatory Orders Diphenhydramine HCl [Benadryl -] 25 mg PO Q6H PRN #28 capsule 03/19/18 Ibuprofen [Motrin -] 600 mg PO QID PRN #28 tablet 03/19/18 Prednisone [Deltasone] 60 mg PO DAILY #12 tablet 03/19/18 Ranitidine HCl [Zantac] 150 mg PO BID PRN #20 tablet 03/19/18 Ondansetron [Zofran Odt -] 4 mg SL TID PRN #21 od.tablet 09/29/18 Anemia: No Cardiac Disorders: No COPD: No CHF: No - Surgical History Abdominal Surgery: (etopic ) - Reproductive History (#): 5 Para: 1 Cervical CA: No Dysfunctional Uterine Bleeding: No Ectopic : Yes (x1) Endometrial CA: No Polycystic Ovaries: No Therapeutic (s) & number: Yes (etopic) Tubal Ligation: No Spontaneous : 2 - Suicide/Smoking/Psychosocial Hx Smoking History: Current every day smoker Have you smoked in the past 12 months: No Information on smoking cessation initiated: No Hx Alcohol Use: No Drug/Substance Use Hx: No Substance Use Type: None Abd/GI Specific PMHX - Complaint Specific PMHX Colitis: No Diverticulitis: No Gall Bladder Disease: No GERD: No Hepatitis: No Irritable Bowel Synd (IBS): No Pancreatitis: No GI Ulcer Disease: No Review of Systems - Review of Systems Able to Perform ROS?: Yes Is the patient limited Yi proficient: No ABD/GI: Yes: Symptoms Reported *Physical Exam - Vital Signs Last Vital Signs Temp Pulse Resp BP Pulse Ox 99.4 F 112 H 18 156/92 100 09/29/18 09:39 09/29/18 09:39 09/29/18 09:39 09/29/18 09:39 09/29/18 09:39 - Physical Exam General Appearance: Yes: Nourished, Appropriately Dressed HEENT: positive: EOMI, ZAHRAA, Normal ENT Inspection, TMs Normal, Pharynx Normal Neck: positive: Supple Respiratory/Chest: positive: Lungs Clear, Normal Breath Sounds. negative: Chest Tender Cardiovascular: positive: Regular Rhythm, Regular Rate Gastrointestinal/Abdominal: positive: Normal Bowel Sounds, Tender, Soft, Tenderness (mid abdomen, no RLQ tenderness ). negative: Guarding, Rebound Moderate Sedation - Procedure Monitoring Vital Signs: Procedure Monitoring Vital Signs Temperature 99.4 F 09/29/18 09:39 Pulse Rate 112 H 09/29/18 09:39 Respiratory Rate 18 09/29/18 09:39 Blood Pressure 156/92 09/29/18 09:39 O2 Sat by Pulse Oximetry (%) 100 09/29/18 09:39 ED Treatment Course - LABORATORY CBC & Chemistry Diagram: 09/29/18 10:50 09/29/18 10:50 Medical Decision Making - Medical Decision Making 09/29/18 09:59 cc: abd pain with nvd started at 2am will give IVF, reglan, benadryl, check labs r/o pancreatitis 09/29/18 13:28 pt feeling much better, no vomiting labs US reviewed pt to be dc home with 24hrs fluids, bowel rest follow up [facility] PMD on tuesday pt and her agree with the plan all questions asked and answered at discharge. *DC/Admit/Observation/Transfer Diagnosis at time of Disposition: Gastroenteritis - Discharge Dispostion Disposition: HOME Condition at time of disposition: Good - Prescriptions Prescriptions: Ondansetron [Zofran Odt -] 4 mg SL TID PRN #21 od.tablet PRN Reason: Nausea And/Or Vomiting - Referrals - Patient Instructions Printed Discharge Instructions: DI for Viral Gastroenteritis -- Adult Additional Instructions: clear fluids for the next 24hrs jello, gatorade, broth gingerale ice pops then slowly transition to dry crackers, plain white rice take the zofran for nausea or vomiting as directed follow with TUESDAY Return to ER for any fever, chills, vomiting blood or any other worsening symptoms - Post Discharge Activity Forms/Work/School Notes: Back to Work
[2018-09-29 11:04] LABS: EOS % 0.2 % (0-4.5); HEMATOCRIT 41.5 % (32.4-45.2); HEMOGLOBIN 13.3 GM/dL (10.7-15.3); LYMPH % 2.6 % (8-40); MCH 27.6 pg (25.7-33.7); MCHC 32.1 g/dl (32.0-36.0); MEAN CELL VOLUME 85.8 fl (80-96); MEAN PLT VOLUME 7.1 fl (7.5-11.1); MONO % 3.1 % (3.8-10.2); NEUT % 94.1 % (42.8-82.8); PLATELET COUNT 305 K/MM3 (134-434); RBC 4.83 M/mm3 (3.60-5.2); RDW 13.5 % (11.6-15.6); WHITE BLOOD COUNT 15.7 K/mm3 (4.0-10.0)
[2018-09-29 11:27] LABS: ALBUMIN 3.5 g/dl (3.4-5.0); ALK PHOS 72 U/L (45-117); AMYLASE 65 U/L (25-115); ANION GAP 10 MMOL/L (8-16); BILIRUBIN,TOTAL 0.7 mg/dL (0.2-1); BLOOD UREA NITROGEN 14 mg/dL (7-18); CALCIUM 8.4 mg/dL (8.5-10.1); CHLORIDE 105 mmol/L (98-107); CO2 24 mmol/L (21-32); CREATININE 0.6 mg/dL (0.55-1.3); GLUCOSE,RANDOM 112 mg/dL (74-106); LIPASE 133 U/L (73-393); POTASSIUM 3.8 mmol/L (3.5-5.1); SGOT/AST 11 U/L (15-37); SGPT/ALT 19 U/L (13-61); SODIUM 139 mmol/L (136-145); TOT PROT 6.8 g/dl (6.4-8.2)
[2018-09-29] MEDS ORDERED: METOCLOPRAMIDE HCL INJECTION 10 MG/2 ML VIAL ONE (11:30)
[2018-09-29] MEDS ORDERED: ACETAMINOPHEN 1000 MG/100 ML VIAL (NON FORMULARY) IVPB ONE (11:38)
[2018-09-29] MEDS ORDERED: ACETAMINOPHEN INJECTION 100 ML IVPB ONE (11:59)
[2018-09-29 13:00] LABS: URINE APPEARANCE CLEAR; URINE BILIRUBIN NEGATIVE (<2.0 mg/dL); URINE COLOR LTYELLOW; URINE GLUCOSE (UA) NEGATIVE (NEGATIVE); URINE KETONE NEGATIVE (NEGATIVE); URINE LEUK ESTERASE NEGATIVE (NEGATIVE); URINE NITRITE NEGATIVE (NEGATIVE); URINE PROTEIN NEGATIVE (NEGATIVE); URINE UROBILINOGEN NEGATIVE mg/dL (0.2-1.0)
[2018-09-29 13:01] LABS: HCG,QUALITATIVE URINE Negative
[2018-09-29 13:05] LABS: ANISOCYTOSIS 0; MACROCYTOSIS 0; PLATELET ESTIMATE NORMAL
[2018-09-29 16:21] VITALS: BP 120/82; PULSE 99
== END 2018-09-29 16:23 | disposition home or self-care (01) ==
LOC: JER 09:39
PROC: 3E033NZ Introduction of Analgesics, Hypnotics, Sedatives into Peripheral Vein, Percutaneous Approach (ICD-10-PCS; principal; 2018-09-29)
PROC: 3E033GC Introduction of Other Therapeutic Substance into Peripheral Vein, Percutaneous Approach (ICD-10-PCS; 2018-09-29)
PROC: 3E033GC Introduction of Other Therapeutic Substance into Peripheral Vein, Percutaneous Approach (ICD-10-PCS; 2018-09-29)
DX: K52.9 Noninfective gastroenteritis and colitis, unspecified (principal)
CPT/HCPCS: 36415; 76705-TC; 80053; 81003; 82150; 83690; 84703; 85025; 87086; 96374; 96375; 99282-25; J0131; J7030

== ENCOUNTER 2021-10-19 19:35 | Emergency (ER) | payer OTHER ==
[2021-10-19 20:33] VITALS: BP 154/89; PULSE 82; TEMP 98.1; BMI 38.3
[2021-10-22 00:06] LABS: SARS-CoV-2 NAA Not Detected (Not Detected)
== END 2021-10-19 21:33 | disposition home or self-care (01) ==
LOC: JER 19:35 → JERFT 19:35
DX: M79.10 Myalgia, unspecified site (principal); R11.0 Nausea; R09.81 Nasal congestion; R51.9 Headache, unspecified
CPT/HCPCS: 87804; 99283-25; C9803; U0003; U0005

== ENCOUNTER 2022-02-04 04:35 | Emergency (ER) | payer OTHER ==
[2022-02-04 05:06] VITALS: BP 168/100; PULSE 95; TEMP 98.3; BMI 38.3
[2022-02-04] MEDS ORDERED: IBUPROFEN 400 MG TABLET (FP) PO ONE (05:29)
[2022-02-04] MEDS ORDERED: KETOROLAC TROMETHAMINE 15 MG/ML VIAL IM ONE (05:31)
[2022-02-04] MEDS ORDERED: KETOROLAC TROMETHAMINE 15 MG/ML VIAL ONE (06:03)
[2022-02-05 12:08] LABS: SARS-CoV-2 NAA Not Detected (Not Detected)
== END 2022-02-04 06:15 | disposition home or self-care (01) ==
LOC: JER 04:35
PROC: 3E0233Z Introduction of Anti-inflammatory into Muscle, Percutaneous Approach (ICD-10-PCS; principal; 2022-02-04)
DX: R07.9 Chest pain, unspecified (principal); R05.1 Acute cough; R68.84 Jaw pain
CPT/HCPCS: 71045-TC-FY; 87804; 93005; 93010; 99285-25; C9803-CS; U0003; U0005

== ENCOUNTER 2022-02-17 20:46 | Emergency (ER) | payer OTHER ==
[2022-02-17 21:17] VITALS: PULSE 88; TEMP 98.6; BMI 36.8
[2022-02-17 22:41] LABS: BASO % 0.6 % (0-2.0); EOS % 1.5 % (0-4.5); HEMOGLOBIN 13.3 GM/dL (10.7-15.3); LYMPH % 26.6 % (8-40); MCH 29.2 pg (25.7-33.7); MEAN CELL VOLUME 85.8 fl (80-96); MEAN PLT VOLUME 6.8 fl (7.5-11.1); MONO % 5.2 % (3.8-10.2); NEUT % 66.1 % (42.8-82.8); PLATELET COUNT 317 10^3/uL (134-434); RBC 4.55 M/mm3 (3.60-5.2); RDW 13.6 % (11.6-15.6); WHITE BLOOD COUNT 9.9 K/mm3 (4.0-10.0)
[2022-02-17 22:48] VITALS: BP 145/91
[2022-02-17 22:48] LABS: PROTHROMBIN TIME (PATIENT) 11.5 SEC (9.7-13.0)
[2022-02-17 23:28] LABS: CALCIUM 8.6 mg/dL (8.5-10.1)
[2022-02-17 23:29] LABS: BLOOD UREA NITROGEN 16.1 mg/dL (7-18)
[2022-02-17 23:33] LABS: CREATININE 0.9 mg/dL (0.55-1.3)
[2022-02-17 23:34] LABS: BILIRUBIN,TOTAL 0.2 mg/dL (0.2-1); TOT PROT 6.5 g/dl (6.4-8.2)
== END 2022-02-18 02:08 | disposition home or self-care (01) ==
LOC: JER 20:46
DX: I10 Essential (primary) hypertension (principal)
CPT/HCPCS: 36415; 70450-TC; 71045-TC-FY; 80053; 84443; 84484; 84703; 85025; 85610; 85730; 93005; 93010; 99283-25

== ENCOUNTER 2022-06-26 18:12 | Emergency (ER) | payer OTHER ==
[2022-06-26 18:39] VITALS: BP 154/89; PULSE 103; RESP 18; TEMP 98.1; BMI 36.8
== END 2022-06-26 19:07 | disposition home or self-care (01) ==
LOC: JER 18:12
DX: G51.0 Bell's palsy (principal)
CPT/HCPCS: 99281-25